=== PATIENT | male | born 1940 | race Two or more races ===

== ENCOUNTER → 2019-01-17 | Outpatient (CLI) | payer OTHER | END | disposition home or self-care (01) | LOC: XYW 10:50 | PROVIDERS: ATTEND Internal Medicine | DX: I08.2 Rheumatic disorders of both aortic and tricuspid valves (principal); I10 Essential (primary) hypertension | CPT/HCPCS: 93306 ==

== ENCOUNTER → 2019-02-04 | Outpatient (CLI) | payer OTHER ==
[2019-02-04 11:56] LABS: BUN/Creatinine Ratio 28.7; Calcium 8.8 mg/dL (8.5-10.1); Potassium 3.7 mmol/L (3.5-5.1)
== END | disposition home or self-care (01) ==
LOC: LAB 10:34
PROVIDERS: ATTEND Urology
DX: N40.1 Benign prostatic hyperplasia with lower urinary tract symptoms (principal)
CPT/HCPCS: 36415; 80048; 84153

== ENCOUNTER → 2019-08-08 | Outpatient (CLI) | payer OTHER ==
[2019-08-08 07:44] LABS: Basophils # (auto) 0 10 ^3/uL (0-0.2); Basophils % (auto) 0.6 % (0.0-2.0); Eosinophils # (auto) 0.2 10 ^3/uL (0-0.8); Eosinophils % (auto) 2.2 % (0.0-7.0); Hematocrit 43.4 % (41.0-53.0); Lymphocytes # (auto) 1.8 10 ^3/uL (0.4-5.4); Mean Corpuscular Hemoglobin 30.9 pg (28.0-32.0); Mean Corpuscular Hgb Conc. 34.5 g/dL (32.0-36.0); Mean Corpuscular Volume 89.5 fL (80.0-100.0); Monocytes # (auto) 0.5 10 ^3/uL (0-1.3); Monocytes % (auto) 7.6 % (0.0-12.0); Neutrophils # (auto) 4.5 10 ^3/uL (1.6-8.6); Neutrophils % (auto) 63.6 % (37.0-80.0); Platelet Count (auto) 175 10^3/uL (140-450); Red Blood Cells 4.85 10^6/uL (4.5-5.90); Red Cell Distribution Width 13.8 % (11.8-14.3); White Blood Cell 7.1 10^3/uL (4.4-10.8)
[2019-08-08 07:57] LABS: Urine Bacteria NONE SEEN /hpf (None Seen); Urine Blood Negative /uL (Negative); Urine Specific Gravity 1.023 (1.001-1.035); Urine WBC 15 /hpf (0 - 3)
[2019-08-08 08:13] LABS: Albumin 3.7 g/dL (3.4-5.0); Calcium 8.6 mg/dL (8.5-10.1); Potassium 3.8 mmol/L (3.5-5.1)
[2019-08-08 08:17] LABS: Bilirubin, Total 0.7 mg/dL (0.2-1.0); Total Protein 7.6 g/dL (6.4-8.2)
== END | disposition home or self-care (01) ==
LOC: LAB 07:05
PROVIDERS: ATTEND Internal Medicine
DX: E03.9 Hypothyroidism, unspecified (principal); I10 Essential (primary) hypertension; E78.5 Hyperlipidemia, unspecified
CPT/HCPCS: 36415; 80053; 80061; 81001; 82306; 83036; 84439; 84443; 85025

== ENCOUNTER → 2019-11-19 | Outpatient (CLI) | payer OTHER | END | disposition home or self-care (01) | LOC: LAB 07:53 | PROVIDERS: ATTEND Internal Medicine | DX: E03.9 Hypothyroidism, unspecified (principal) | CPT/HCPCS: 36415; 84439; 84443 ==

== ENCOUNTER 2020-02-07 11:42 | Inpatient (IN) | payer OTHER ==
[~2020-02-07] VITALS: Ht 170.2 cm; Wt 81.3 kg
--- NOTE | 2020-02-07 12:00 | NUR ---
Direct Admit Note ZION EASLEY admitted to Telemetry/MS unit as a direct admit per Dr George order. Patient oriented to DARLENE HOUSTON,RN primary RN, unit, room, bed, and unit policies regarding patient care and visiting hours. Patient now on continuous telemetry monitoring, tele box #[id number] and telemetry reading on arrival to unit is SR 78bpm. Patient weighed by bedscale and encouraged to call if they need something. All questions and concerns addressed, patient verbalized understanding. Bed in lowest/locked position, bed rails upx2, call light within reach. MD notified of patients arrival and admit orders received.
--- NOTE | 2020-02-07 12:10 | NUR ---
IV insertion IV access obtained, via clean sterile technique by inserting 20 gauge catheter at RIGHT WRIST after 1 attempt. IV secured properly. No trauma to site. Patient tolerated procedure well.
--- NOTE | 2020-02-07 12:20 | NUR ---
EKG EKG PERFORMED PER MD ORDERS. COPY SENT TO MD. WILL CONTINUE TO MONITOR
[2020-02-07] MEDS ORDERED: LISI-646 PO (12:25)
[2020-02-07] MEDS ORDERED: HYDROmorphone HCL 2 MG/ML VL IV PRN (12:30)
[2020-02-07] MEDS ORDERED: MORPHINE SULF INJ 2 MG/ML SYRINGE 1ML IV PRN ×2 (12:30)
[2020-02-07] MEDS ORDERED: HYDROcodone-ACET 5/325MG TAB PO PRN (12:30)
[2020-02-07] MEDS ORDERED: ONDANSETRON HCL 4 MG/2 ML VIAL IV PRN (12:30)
[2020-02-07] MEDS ORDERED: NITROGLYCERIN 0.4 MG SL TAB SL PRN (12:30)
[2020-02-07] MEDS ORDERED: ACETAMINOPHEN 325 MG TAB PO PRN (12:30)
[2020-02-07] MEDS ORDERED: DOCUSATE SOD 100 MG CAP PO PRN (12:30)
[2020-02-07] MEDS ORDERED: LEVO25TA6 PO (12:31)
[2020-02-07] MEDS ORDERED: SIMV-8 PO (12:31)
[2020-02-07] MEDS ORDERED: LISI-275 PO (12:37)
[2020-02-07] MEDS ORDERED: MULT-928 PO (12:40)
[2020-02-07] MEDS ORDERED: CALC-239 PO (12:40)
[2020-02-07] MEDS ORDERED: GINK120C3 PO (12:41)
[2020-02-07] MEDS ORDERED: OMEG1CAP59 PO (12:41)
[2020-02-07] MEDS ORDERED: CYAN1TAB11 PO (12:41)
[2020-02-07] MEDS ORDERED: MISCCAP PO (12:46)
[2020-02-07 13:00] VITALS: BP 128/65
--- NOTE | 2020-02-07 14:00 | NUR ---
LAB COVID SWAB OBTAINED, WALKED TO LAB UA SENT TO LAB
[2020-02-07] MEDS: SODIUM CHLORIDE 0.9% 1,000 ML IV SCH (14:24)
[2020-02-07] MEDS: PANTOPRAZOLE 40 MG/10 ML VIAL INJ IV SCH ×2 (14:24→21:27)
[2020-02-07 14:34] LABS: Mean Corpuscular Hemoglobin 31.9 pg (28.0-32.0); Mean Corpuscular Hgb Conc. 34.3 g/dL (32.0-36.0); Mean Corpuscular Volume 93.1 fL (80.0-100.0); Platelet Count (auto) 159 10^3/uL (140-450); Red Blood Cells 2.15 10^6/uL (4.5-5.90); Red Cell Distribution Width 14.2 % (11.8-14.3); White Blood Cell 15.2 10^3/uL (4.4-10.8)
[2020-02-07 14:53] LABS: Hemoglobin 6.9 g/dL (13.5-17.5)
[2020-02-07 14:54] LABS: Basophils % (manual) 0 (0.0-2.0); Blast Cells 0; Eosinophils % (manual) 0 (0-7); Myelocytes % 0; Promyelocytes % 0; Reactive Lymphocytes 0
[2020-02-07 14:55] LABS: Albumin 3.5 g/dL (3.4-5.0); Calcium 8.9 mg/dL (8.5-10.1); Magnesium 2.4 mg/dL (1.6-2.6); Potassium 3.8 mmol/L (3.5-5.1)
--- NOTE | 2020-02-07 15:00 | NUR ---
CRITICAL RECEIVED CRITICAL HGB 6.[address] NEIL
[2020-02-07 15:02] LABS: BUN/Creatinine Ratio 45.3; Bilirubin, Total 0.4 mg/dL (0.2-1.0); Total Protein 6.6 g/dL (6.4-8.2)
[2020-02-07 15:31] LABS: Urine Bacteria NONE SEEN /hpf (None Seen); Urine Blood Negative /uL (Negative); Urine Mucus FEW (None Seen); Urine Specific Gravity 1.019 (1.001-1.035); Urine WBC 9 /hpf (0 - 3)
[2020-02-07] MEDS ORDERED: cefTRIAXone 1GM/50ML D5W 50 ML IV ONE (16:45)
[2020-02-07 17:18] VITALS: BP 111/63
[2020-02-07 17:25] LABS: INR 1.09 (0.9-1.15)
[2020-02-07 17:27] LABS: % Iron Saturation 7.8 % (20-55)
--- NOTE | 2020-02-07 17:43 | NUR ---
CRITICAL TROPONIN 9.14 DR NEIL MADE AWARE
--- NOTE | 2020-02-07 18:00 | NUR ---
CARDIOLOGY INFORMED DR CLINTON RE: PATIENT TROPONIN 9.14. NO NEW ORDERS RECEIVED AT THIS TIME Addendum: 02/07/20 at 1834 by DARLENE HOUSTON RN RN DR CLINTON REQUESTING REGULATORY INTERNSH[employer] TO CALL HIM RE: PATIENT ECHO FROM [facility] TODAY. SPOKE WITH PATRICK, REGULATORY INTERNSHIP. WILL CONTINUE TO MONITOR
[2020-02-07] MEDS ORDERED: OMNIPAQUE ORAL SOLN 500ml 12mg/ml PO ONE (18:25)
[2020-02-07] MEDS ORDERED: IOHEXOL 300 MG/ML 100ML BOTTLE IJ ONE (18:25)
[2020-02-07 18:29] LABS: Band Neutrophils % (manual) 7; Lymphocytes % (manual) 14 (10.0-50.0); Metamyelocytes % 4; Monocytes % (manual) 9 (0-12)
--- NOTE | 2020-02-07 18:31 | NUR ---
CT NEW ORDERS FROM DR NEIL PLACED FOR CT CHEST/ABD/PELVIS TECH CALLED RE: PATIENT NPO STATUS FOR AT LEAST 4 HOURS, INFORMED TECH PATIENT JUST ATE DINNER, CT WILL BE HELD UNTIL MORNING. INFORMED DR NEIL
--- NOTE | 2020-02-07 18:36 | NUR ---
ECHO TREATING PLANT OPERATORPATRICK HILL, CALLED Re: PATIENT ECHO EARLIER TODAY. PER PATRICK: DR CLINTON WAS NOTIFIED. WILL CONTINUE TO MONITOR
--- NOTE | 2020-02-07 19:30 | NUR ---
Opening Shift Note Assumed care of patient, awake and alert. No S/S of distress/SOB or pain. Instructed on POC and to call for assist PRN, will continue to monitor for changes Q1hr and PRN.
[2020-02-07 20:00] VITALS: BP 103/60
[2020-02-07] MEDS: ATORVASTATIN 20 MG TAB PO SCH (21:27)
[2020-02-07 22:00] VITALS: BP 103/75
[2020-02-07 22:30] VITALS: BP 103/54
--- NOTE | 2020-02-07 22:30 | NUR ---
BLOOD TRANSFUSION START PATIENT'S VS STABLE AND WNL. RATE STARTED AT 50ML/HR. PATIENT OBSERVATION FOR THE NEXT 25 MINUTES FOR ANY SIGNS OF TRANSFUSION REACTIONS.
[2020-02-07 22:45] VITALS: BP 102/56
--- NOTE | 2020-02-07 22:45 | NUR ---
15 MINUTES POST TRANSFUSION BEGUN. NO SIGNS OR SYMPTOMS OBSERVED OR REPORTED. NO SIGNIFICANT DEVIATION FROM BASELINE WITH VS. RATE INCREASED TO 150ML/HR. PATIENT IS ENCOURAGED TO CALL IF THEY NEED ANYTHING OR START TO FEEL ANY ADVERSE SYMPTOMS OF THE TRANSFUSION. TRANSFUSION COMPLICATIONS AND S/S TO LOOK OUT FOR DISCUSSED WITH PATIENT.
[2020-02-07 22:54] LABS: Hematocrit 19.1 % (41.0-53.0)
[2020-02-07 22:57] LABS: Hemoglobin 6.3 g/dL (13.5-17.5)
[2020-02-08] VITALS (8 sets, daily range): BP systolic 101–116; BP diastolic 55–70
--- NOTE | 2020-02-08 00:32 | NUR ---
TRANSFUSION COMPLETE. PATIENT TOLERATED WELL. NO SIGNS OR SYMPTOMS OF ADVERSE EFFECTS OR TRANSFUSION REACTIONS.
--- NOTE | 2020-02-08 01:00 | NUR ---
UNIT 2 STARTED. RATE STARTED AT 50ML/HR. WILL OBSERVE FOR 15 MINUTES. VS WNL
--- NOTE | 2020-02-08 01:15 | NUR ---
PATIENT TOLERATING WELL. NO SIGNS OR SYMPTOMS OF REACTIONS.
--- NOTE | 2020-02-08 03:37 | NUR ---
UNIT NUMBER 2 COMPLETE. PATIENT TOLERATED WELL. NO ADVERSE AFFECTS OR TRANSFUSION REACTIONS NOTED.
[2020-02-08] MEDS: SODIUM CHLORIDE 0.9% 1,000 ML IV SCH (06:30)
[2020-02-08] MEDS: LEVOTHYROXINE SODIUM 88 MCG TAB PO SCH ×2 (06:30→06:48)
--- NOTE | 2020-02-08 07:45 | NUR ---
Opening Shift Note Assumed care of patient, awake, alert, and oriented. No S/S of distress/SOB or pain. Bed in lowest/locked position, bed rails up x2, call light within reach. Instructed on POC and to call for assist PRN. Will continue to monitor for changes Q1hr and PRN.
[2020-02-08 08:07] LABS: Hematocrit 25.6 % (41.0-53.0); Hemoglobin 8.9 g/dL (13.5-17.5)
[2020-02-08] MEDS ORDERED: OMNIPAQUE ORAL SOLN 500ml 12mg/ml PO ONE (08:18)
--- NOTE | 2020-02-08 08:51 | NUR ---
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
[2020-02-08] MEDS: cefTRIAXone 1GM/50ML D5W 50 ML IV SCH (09:56)
[2020-02-08] MEDS: PANTOPRAZOLE 40 MG/10 ML VIAL INJ IV SCH ×2 (09:56→22:24)
[2020-02-08] MEDS ORDERED: IOHEXOL 300 MG/ML 100ML BOTTLE IJ ONE (12:47)
[2020-02-08] MEDS: ATORVASTATIN 20 MG TAB PO SCH (22:24)
[2020-02-08 23:40] LABS: Hematocrit 26.5 % (41.0-53.0); Hemoglobin 8.8 g/dL (13.5-17.5)
[2020-02-09] MEDS: SODIUM CHLORIDE 0.9% 1,000 ML IV SCH ×2 (00:01→17:00)
[2020-02-09 05:00] VITALS: BP 115/67
[2020-02-09 05:32] LABS: Hematocrit 26.7 % (41.0-53.0); Hemoglobin 9.1 g/dL (13.5-17.5)
[2020-02-09] MEDS: LEVOTHYROXINE SODIUM 88 MCG TAB PO SCH ×2 (07:00→09:37)
[2020-02-09 09:00] VITALS: BP 126/68
[2020-02-09 09:07] LABS: BUN/Creatinine Ratio 31.5; Calcium 7.8 mg/dL (8.5-10.1); Potassium 3.7 mmol/L (3.5-5.1)
[2020-02-09] MEDS: PANTOPRAZOLE 40 MG/10 ML VIAL INJ IV SCH ×2 (09:27→21:22)
[2020-02-09] MEDS: cefTRIAXone 1GM/50ML D5W 50 ML IV SCH (09:27)
--- NOTE | 2020-02-09 12:30 | NUR ---
Dr. Gillis at bedside. Spoke to patient regarding holding off on procedures due to Troponin Level still being elevated. Stools are less dark at this time per patient, no pain. Needs to be cleared by cardiology prior to any procedure. Will continue to monitor.
--- NOTE | 2020-02-09 12:34 | NUR ---
Nutrition Assessment Est energy needs 7557-3243 kcal (20-23 kcal/kg 80.3kg) Est protein needs 64-80g (0.8-1g/kg BW 80.3kg) Will monitor and reassess prn. Addendum: 02/09/20 at [address] Amended: Links added.
[2020-02-09 13:05] VITALS: BP 122/73
--- NOTE | 2020-02-09 14:00 | NUR ---
Spoke to Teresa Updated regarding patient POC and visits with doctors. She asked if we could please call her after the doctor visits with her because he never remembers exactly what they are telling him. Will communicate to public speaker.
[2020-02-09 14:08] LABS: Hematocrit 27.7 % (41.0-53.0); Hemoglobin 9.5 g/dL (13.5-17.5)
[2020-02-09 16:43] VITALS: BP 123/78
--- NOTE | 2020-02-09 19:00 | NUR ---
OPENING NOTE Received report from day shift RN. Patient is A&O X's 4 with no s/s of distress and reports no pain. Patient is currently on telephone. Educated patient to use call light when in need of any assistance. Patient verbalized understanding. Bed is in lowest/locked position with side rails up X's 2 and call light is within reach of patient. Will continue care.
[2020-02-09 21:00] VITALS: BP 120/67
[2020-02-09] MEDS: ATORVASTATIN 20 MG TAB PO SCH (21:22)
[2020-02-09 22:16] LABS: Hematocrit 26.4 % (41.0-53.0); Hemoglobin 8.9 g/dL (13.5-17.5)
[2020-02-10 05:00] VITALS: BP 118/65
[2020-02-10 05:25] LABS: Hematocrit 25.6 % (41.0-53.0); Hemoglobin 8.7 g/dL (13.5-17.5)
[2020-02-10] MEDS: SODIUM CHLORIDE 0.9% 1,000 ML IV SCH (05:27)
[2020-02-10] MEDS: PANTOPRAZOLE 40 MG/10 ML VIAL INJ IV SCH ×2 (09:07→21:12)
[2020-02-10] MEDS: cefTRIAXone 1GM/50ML D5W 50 ML IV SCH (09:07)
[2020-02-10 09:21] VITALS: BP 118/67
[2020-02-10] MEDS ORDERED: GADOTERATE MEG 10 MMOL/20ml INJ (0.5MMOL/ml) IV ONE (09:36)
--- NOTE | 2020-02-10 10:00 | NUR ---
Opening Shift Note Assumed care of patient, awake and alert and oriented x 4 and verbally responsive. No S/S of distress/SOB or pain. Instructed on POC and to call for assist PRN, will continue to monitor for changes Q1hr and PRN.
[2020-02-10 10:04] LABS: Folate (Folic Acid) > 24.00 ng/mL (5.38-24)
[2020-02-10 13:00] VITALS: BP 119/69
[2020-02-10 14:04] LABS: Hematocrit 27.6 % (41.0-53.0); Hemoglobin 9.5 g/dL (13.5-17.5)
[2020-02-10 17:00] VITALS: BP 114/69
[2020-02-10 21:00] VITALS: BP 119/72
[2020-02-10] MEDS: ATORVASTATIN 20 MG TAB PO SCH (21:12)
[2020-02-10 22:23] LABS: Hemoglobin 8.6 g/dL (13.5-17.5)
--- NOTE | 2020-02-11 | NUR ---
PATIENT NPO PATIENT AWARE AND VERBALIZED UNDERSTANDING.
[2020-02-11] MEDS: SODIUM CHLORIDE 0.9% 1,000 ML IV SCH ×2 (00:04→16:30)
--- NOTE | 2020-02-11 03:17 | NUR ---
IV insertion IV access obtained, via clean sterile technique by inserting 20 gauge catheter at LEFT FA after ONE attempt. IV secured properly. No trauma to site. Patient tolerated procedure well.
--- NOTE | 2020-02-11 03:18 | NUR ---
IV removal 20G IV TO RIGHT FA WAS LEAKING. IV WAS DC'd with sterile technique, catheter fully intact. Pressure dressing applied to site. Patient tolerated procedure well.
[2020-02-11 05:00] VITALS: BP 123/71
[2020-02-11] MEDS: LEVOTHYROXINE SODIUM 88 MCG TAB PO SCH (06:18)
--- NOTE | 2020-02-11 07:45 | NUR ---
Patient left to [employer] [facility] unit.
[2020-02-11] MEDS ORDERED: LIDOCAINE 2%HCL (LOCAL ANESTH.) INJ 20ML MDV ONE (07:46)
--- NOTE | 2020-02-11 07:55 | NUR ---
pt received in cathlab pt however did not sign consent and states, "I want to see the doctor." notified Dr Box by phone.
--- NOTE | 2020-02-11 08:14 | NUR ---
Clare Barron at bedside addressed pt's concerns and questions re procedure afterwhich, LOU Rodriguez states, "he's willing to sign now"
[2020-02-11] MEDS ORDERED: ANGIOMAX 250 MG VIAL IV ONE (08:24)
[2020-02-11] MEDS ORDERED: fentaNYL CITRATE 100 MCG/2 ML VL ONE (08:24)
[2020-02-11] MEDS ORDERED: MIDAZOLAM HCL 1MG/1ML-2 ML VIAL ONE (08:24)
[2020-02-11] MEDS ORDERED: SODIUM CHL 0.9% 0 ML ONE (08:25)
[2020-02-11] MEDS ORDERED: HEPARIN SODIUM (PORCINE) 5000 UNITS/ML 1ML VIAL ONE (08:28)
[2020-02-11] MEDS ORDERED: VERAPAMIL 2.5MG/ML INJ 2ML VIAL IV ONE (08:28)
[2020-02-11 09:17] LABS: Basophils # (auto) 0 10 ^3/uL (0-0.2); Basophils % (auto) 0.2 % (0.0-2.0); Eosinophils # (auto) 0.1 10 ^3/uL (0-0.8); Eosinophils % (auto) 1.3 % (0.0-7.0); Hematocrit 26.4 % (41.0-53.0); Lymphocytes # (auto) 1.2 10 ^3/uL (0.4-5.4); Lymphocytes % (auto) 15.9 % (10.0-50.0); Mean Corpuscular Hgb Conc. 34.2 g/dL (32.0-36.0); Mean Corpuscular Volume 90.6 fL (80.0-100.0); Monocytes # (auto) 0.7 10 ^3/uL (0-1.3); Monocytes % (auto) 9.1 % (0.0-12.0); Neutrophils # (auto) 5.8 10 ^3/uL (1.6-8.6); Neutrophils % (auto) 73.5 % (37.0-80.0); Nucleated Red Blood Cells % 0.1 %; Platelet Count (auto) 181 10^3/uL (140-450); Red Blood Cells 2.91 10^6/uL (4.5-5.90); Red Cell Distribution Width 14.6 % (11.8-14.3); White Blood Cell 7.9 10^3/uL (4.4-10.8)
[2020-02-11 09:29] LABS: INR 1.08 (0.9-1.15); Partial Thromboplastin Time 26.6 sec (23.0-31.2)
[2020-02-11 09:52] VITALS: BP 110/68
--- NOTE | 2020-02-11 09:54 | NUR ---
Patient came back from Pressurizer. AxOX4 and verbally responsive. No respiratory distress noted. Skin is warm and dry to touch. Denied pain at this time. Puncture side to right radial, dry and in tact, will release air around 10.30 AM. Placed a call light within reach, will continue to monitor.
[2020-02-11] MEDS: PANTOPRAZOLE 40 MG/10 ML VIAL INJ IV SCH (10:04)
[2020-02-11] MEDS: cefTRIAXone 1GM/50ML D5W 50 ML IV SCH (10:04)
--- NOTE | 2020-02-11 10:18 | NUR ---
Dr. George at bedside , received new order to transfer to [place]. Noted and carried it out.
--- NOTE | 2020-02-11 10:41 | NUR ---
I called [facility] [place] [phone] and spoke with Marcella regarding the need to transfer patient for CABG-she will present the information to her MD and give me a call back. I spoke with Dr. George regarding the plan of care for this patient/need to transfer for CABG. I faxed transfer request/packet to [facility].
--- NOTE | 2020-02-11 11:00 | NUR ---
Assessment Patient is an 79-year-old male who is alert and oriented. Patient redirect me to his Mary Ann. Prior to admission patient lived home with family and functioned independently. Per Mary Ann prior to admission patient could care for his own ADL's. Patient does not have any medical equipment now. Advised [place] there is a social service consult to transfer for CABG. Mary Ann is in agreement for patient to be transfer. Informed Mary Ann WEN Velázquez will be working on order. Informed Mary Ann she has the right to participate in all discharge planning. Patient does not have an advance directive. Mary Ann verbalized understanding and agrees to discharge plan. Addendum: 02/11/20 at 1430 by JOSEFA ARELLANO Amended: Links added.
--- NOTE | 2020-02-11 12:56 | NUR ---
Nutrition Followup Note Wt 81.3kg Pt was alert and oriented at time of rounds. Pt is s/p procedure today. pt was NPO after midnight for procedure. Per RN pt to have diet today and be NPO for another procedure tomorrow. Pt is with a good appetite aeb pt with 94% po intake x 3 days per Rn note Est energy needs [id number] kcal (20-23 kcal/kg 80.3kg) Est protein needs 64-80g (0.8-1g/kg BW 80.3kg) Will monitor and reassess prn. Labs: BUN 29H, Ca 7.8L, Alb 3.5WNL BM: pt with no BM noted per Rn note Skin: BS 22 low risk, full details in animal care technician note PES: Resolved: Inadequate oral intake r/t current medical condition aeb pt with clear liquid diet Comments 1) Continue to monitor po intake, labs, skin 2) refer pt to [facility] on DC 3) Continue current plan of care Expected Outcomes/Goals: 1) pt po intake >75% and tolerate po intake 2) pt to maintain wt while in hospital 3) f/u 3-5 days
--- NOTE | 2020-02-11 13:00 | NUR ---
Patient will be going to [facility] room 6108, nurse to call report to [phone], Dr. Acharya is accepting. I called [facility] and set pear picker time for 1500. I spoke with nurse Pa and made her aware. I spoke with patient's Mary Ann and made her aware as well-provided her with contact information for [facility]. I spoke with Dr. George and made him aware.
--- NOTE | 2020-02-11 14:15 | NUR ---
Report given to Gisel MEDINA.
--- NOTE | 2020-02-11 14:23 | NUR ---
I called [facility] and let them know there is a room change at [facility]-patient will be going to [address] room 3102-Nurse Pa already aware.
--- NOTE | 2020-02-11 14:30 | NUR ---
Informed patient's and patient regarding patient is being transfer to [facility] around 3 PM.
--- NOTE | 2020-02-11 15:00 | NUR ---
I received a call from Elier at [facility] letting me know that they are running late-they will be here [phone]-I relayed this information to nurse Winn.
--- NOTE | 2020-02-11 15:00 | NUR ---
Informed patient regarding transportation will be delayed.
--- NOTE | 2020-02-11 16:04 | NUR ---
I received a call from Elier at [facility] letting me know that they may not be here for another 60-90 minutes to pick patient up. I relayed this information to nurse Winn-I also called [facility] and spoke with Marcella in Admitting to let her know.
--- NOTE | 2020-02-11 17:59 | NUR ---
Called [facility] spoke to [facility] stated transportation will be in 15-20 mins. Patient informed.
[2020-02-11 18:02] VITALS: BP 108/77
--- NOTE | 2020-02-11 18:54 | NUR ---
Discharge instructions given as ordered. Encourage to follow up with PMD and patient Transfer to [facility] as instructed. All questions and concerns addressed. Patient verbalized understanding. Medication reconciliation form completed and copy given to patient. Telemetry unit returned to ICU. Patient taken to vehicle via [facility] gurney with all personal belongings, accompanied by [facility] staff and family member. No distress noted at time of departure.
== END 2020-02-11 18:50 | disposition short-term general hospital (02) | DRG 281 ==
LOC: TELE-WESTW 11:42
PROVIDERS: ADMIT Internal Medicine; ATTEND Internal Medicine
PROC: 30233N1 Transfusion of Nonautologous Red Blood Cells into Peripheral Vein, Percutaneous Approach (ICD-10-PCS; 2020-02-07)
PROC: B2111ZZ Fluoroscopy of Multiple Coronary Arteries using Low Osmolar Contrast (ICD-10-PCS; principal; 2020-02-11)
PROC: 4A023N7 Measurement of Cardiac Sampling and Pressure, Left Heart, Percutaneous Approach (ICD-10-PCS; 2020-02-11)
PROC: B2151ZZ Fluoroscopy of Left Heart using Low Osmolar Contrast (ICD-10-PCS; 2020-02-11)
DX: I21.4 Non-ST elevation (NSTEMI) myocardial infarction (principal); K92.1 Melena; N39.0 Urinary tract infection, site not specified; T82.855A Stenosis of coronary artery stent, initial encounter; I10 Essential (primary) hypertension; E78.5 Hyperlipidemia, unspecified; E03.9 Hypothyroidism, unspecified; N21.0 Calculus in bladder; D13.6 Benign neoplasm of pancreas; D50.0 Iron deficiency anemia secondary to blood loss (chronic); I25.10 Atherosclerotic heart disease of native coronary artery without angina pectoris; I35.0 Nonrheumatic aortic (valve) stenosis; N28.1 Cyst of kidney, acquired; Y83.1 Surgical operation with implant of artificial internal device as the cause of abnormal reaction of the patient, or of later complication, without mention of misadventure at the time of the procedure; Z87.442 Personal history of urinary calculi; Z95.1 Presence of aortocoronary bypass graft; Z88.0 Allergy status to penicillin; Z20.828 Contact with and (suspected) exposure to other viral communicable diseases
CPT/HCPCS: 36415; 71045; 71260; 74177; 74183; 80048; 80053; 81001; 82378; 82607; 82728; 82746; 83036; 83540; 83550; 83615; 83735; 84439; 84443; 84484; 85007; 85014; 85018; 85025; 85027; 85045; 85610; 85730; 86301; 86850; 86900; 86901; 86920; 93306; 99152; C9113; G0378; J0696; J2250